=== PATIENT | male | born 1975 | race Caucasian/White ===

== ENCOUNTER 2016-12-18 18:59 | Emergency (ER) | payer OTHER ==
[~2016-12-18] VITALS: Ht 180.3 cm; Wt 95.3 kg
[2016-12-18] MEDS ORDERED: LIDOCAINE 1% HCL (LOCAL ANESTH.) INJ 20ML MDV IJ ONE (22:30)
[2016-12-18] MEDS ORDERED: CYCLOBENZAPRINE HCL 10 MG TAB PO ONE (22:45)
[2016-12-18] MEDS ORDERED: IBUPROFEN 600 MG TAB PO ONE (22:45)
[2016-12-18 22:54] VITALS: BP 158/86
== END 2016-12-18 23:08 | disposition home or self-care (01) ==
LOC: ER 19:17
DX: S63.284A Dislocation of proximal interphalangeal joint of right ring finger, initial encounter (principal); S46.811A Strain of other muscles, fascia and tendons at shoulder and upper arm level, right arm, initial encounter; S60.221A Contusion of right hand, initial encounter; V49.29XA Unspecified car occupant injured in collision with other motor vehicles in nontraffic accident, initial encounter; Y93.89 Activity, other specified; Y99.8 Other external cause status; Y92.89 Other specified places as the place of occurrence of the external cause
CPT/HCPCS: 29130; 73130; 73140; 99284; J2001